=== PATIENT | male | born 1985 | race African-American/Black ===

== ENCOUNTER 2023-09-14 01:49 | Emergency (ER) | payer MEDICAID ==
[~2023-09-14] VITALS: Ht 177.8 cm; Wt 70.0 kg
[~2023-09-14 01:49] MED LIST: CARB200C7
[2023-09-14 03:02] VITALS: BP 140/60; PULSE 80; RESP 16; TEMP 98.5; O2SAT 98
== END 2023-09-14 05:00 | disposition left against medical advice (07) ==
LOC: ER 01:49
DX: Z76.0 Encounter for issue of repeat prescription (principal); Z53.21 Procedure and treatment not carried out due to patient leaving prior to being seen by health care provider
CPT/HCPCS: 99281

== ENCOUNTER 2023-10-24 00:11 | Emergency (ER) | payer MEDICAID ==
[~2023-10-24] VITALS: Ht 175.3 cm; Wt 84.0 kg
[2023-10-24 00:14] VITALS: O2SAT 98
[2023-10-24] MEDS ORDERED: CARB200T MT (01:27)
[2023-10-24] MEDS: CARBAMAZEPINE 200MG TABLET PO ONE (01:32)
[2023-10-24 02:43] VITALS: BP 116/82; PULSE 101; RESP 16; TEMP 97.9
== END 2023-10-24 01:27 | disposition home or self-care (01) ==
LOC: ER 00:11
DX: R56.9 Unspecified convulsions (principal); Z76.0 Encounter for issue of repeat prescription
CPT/HCPCS: 99283; Z7610

== ENCOUNTER 2023-11-08 17:52 | Emergency (ER) | payer MEDICAID ==
[~2023-11-08] VITALS: Ht 180.3 cm; Wt 81.0 kg
[~2023-11-08 17:52] MED LIST changes: +CARB200T MT
[2023-11-08 18:04] VITALS: BP 124/70; PULSE 109; RESP 20; TEMP 98.5; O2SAT 99
[2023-11-08] MEDS ORDERED: CARB200T MT (19:32)
== END 2023-11-08 20:04 | disposition home or self-care (01) ==
LOC: ER 17:52
DX: R56.9 Unspecified convulsions (principal); F12.10 Cannabis abuse, uncomplicated; Z76.0 Encounter for issue of repeat prescription
CPT/HCPCS: 99283